=== PATIENT | male | born 2000 | race Caucasian/White ===

== ENCOUNTER 2025-04-18 19:44 | Emergency (ER) | payer BC ==
[~2025-04-18] VITALS: Ht 180.3 cm; Wt 65.3 kg
[2025-04-18 20:24] LABS: Source, Urine Clean Catch
[2025-04-18 20:33] LABS: Bilirubin, Urine Neg (Neg); Color, Urine Yellow (P-Yellow); Glucose Qualitative, Urine Neg (Neg); Ketones, Urine Neg (Neg); Leukocyte Esterase, Urine Neg (Neg); Protein, Urine Neg (Neg); Specific Gravity, Urine 1.010 (1.003-1.022); Urobilinogen, Urine NORM (Normal)
== END 2025-04-18 21:41 | disposition home or self-care (01) ==
LOC: ER 19:44
PROVIDERS: Emergency Medicine
DX: N43.3 Hydrocele, unspecified (principal); N50.811 Right testicular pain
CPT/HCPCS: 76870; 81003; 99284-25